=== PATIENT | male | born 1985 | race Hispanic/Latino ===

== ENCOUNTER 2017-08-14 16:06 | Emergency (ER) | payer OTHER ==
[~2017-08-14] VITALS: Ht 182.9 cm; Wt 82.6 kg
--- OUTSIDE RECORDS SUMMARY | 2017-08-14 16:08 | XMS REPORT | Clinical Summary ---
Author Author CORRIE [facility] Address Unknown Phone Unavailable Care Team Providers Care Erp Specialist Name Role Phone PCP Unavailable Allergies No Known Allergies Current Medications Prescription Sig. Disp. Refills Start End Date Status Date acetaminophen-codeine 10/07/19 Active (TYLENOL #3) 300-30 mg 16 per tablet cyclobenzaprine 10/07/19 Active (FLEXERIL) 10 MG tablet 16 diazepam (VALIUM) 5 MG 09/08/19 Active tablet 16 naproxen (NAPROSYN) 500 10/07/19 Active MG tablet 16 ondansetron (ZOFRAN) 4 MG 09/08/19 Active tablet 16 Active Problems No known active problems Social History Tobacco Use Types Packs/Day Years Used Date Never Smoker Smokeless Tobacco: Never Used Alcohol Use Drinks/Week oz/Week Comments No Sex Assigned at Date Recorded Not on file Last Filed Vital Signs Not on file Plan of Treatment Not on file Results Not on fileafter 08/13/2016
[2017-08-14] MEDS ORDERED: KETOROLAC TROMETHAMINE 30 MG/ML VIAL IV STA (16:17)
[2017-08-14] MEDS ORDERED: ONDANSETRON HCL INJ 2 MG/ML VIAL IV STA (16:24)
[2017-08-14] MEDS ORDERED: MORPHINE SULFATE INJ 10 MG/ML IV ONE ×2 (16:30→17:30)
[2017-08-14] MEDS ORDERED: SODIUM CHLORIDE 0.9% 1000ML 1,000 ML IV SCH ×2 (16:30→18:15)
[2017-08-14] MEDS ORDERED: MORPHINE SULFATE 2 MG/ML SYR IV STA (18:12)
[2017-08-14] MEDS ORDERED: METOCLOPRAMIDE HCL 10 MG/2ML VIAL IV ONE (18:15)
[2017-08-14] MEDS ORDERED: FENTANYL CITRATE/PF 100MCG/2 ML INJ IV ONE (19:30)
[2017-08-14] MEDS ORDERED: PROMETHAZINE 12.5MG/ NACL 0.9% 12.5 MG/50 ML BAG IV ONE (19:30)
== END 2017-08-14 19:20 | disposition home or self-care (01) ==
LOC: FSED 16:06
DX: R10.9 Unspecified abdominal pain (principal); N20.0 Calculus of kidney
CPT/HCPCS: 74176; 80053; 81003; 85025; 99284; J1885; J2270 ×2; J2405; J2550; J2765

== ENCOUNTER 2018-02-18 15:23 | Emergency (ER) | payer OTHER ==
[~2018-02-18] VITALS: Ht 182.9 cm; Wt 82.6 kg
--- OUTSIDE RECORDS SUMMARY | 2018-02-18 15:26 | XMS REPORT | Clinical Summary ---
Author Author CORRIE [facility] Address Unknown Phone Unavailable Care Team Providers Care Operations Support Representative Name Role Phone Sharpless PCP Allergies No Known Allergies Medications End Date Status Medication Sig Dispensed Refills Start Date Active acetaminophen-codeine 0 (TYLENOL #3) 300-30 mg 6 per tablet Active cyclobenzaprine 0 (FLEXERIL) 10 MG tablet 6 Active diazepam (VALIUM) 5 MG 0 tablet 6 Active naproxen (NAPROSYN) 500 0 MG tablet 6 Active ondansetron (ZOFRAN) 4 MG 0 tablet 6 Active Problems No known active problems Social History Date Tobacco Use Types Packs/Day Years Used Never Smoker Smokeless Tobacco: Never Used Alcohol Use Drinks/Week oz/Week Comments No Sex Assigned at Date Recorded Not on file Industry Job Start Date Occupation Not on file Not on file Not on file Travel End Travel History Travel Start No recent travel history available. Last Filed Vital Signs Not on file Plan of Treatment Not on file Results Not on fileafter 02/17/2017 Insurance Payer Benefit Subscriber ID Type Phone Address Plan / Group [facility] H[facility]/POS CARE POS SELECT CHOICE
[2018-02-18] MEDS ORDERED: KETOROLAC TROMETHAMINE 30 MG/ML VIAL IV STA (16:36)
[2018-02-18] MEDS ORDERED: SODIUM CHLORIDE 0.9% 1000ML 1,000 ML IV SCH (16:45)
--- NOTE | 2018-02-18 18:19 | Diagnostic Imaging Report ---
EXAM: CT Abdomen and Pelvis WITHOUT contrast INDICATION: Right lower quadrant pain ^[id number] ^1650 COMPARISON: None. TECHNIQUE: Abdomen and pelvis were scanned utilizing a multidetector helical scanner from the lung base to the pubic symphysis without administration of IV contrast. Absence of intravenous contrast decreases sensitivity for detection of focal lesions and vascular pathology. Coronal and sagittal reformations were obtained. Routine protocol was performed. IV CONTRAST: None ORAL CONTRAST: Water COMPLICATIONS: None RADIATION DOSE: Total DLP: 593.39 mGy*cm Estimated effective dose: (DLP x 0.015 x size factor) mSv CTDIvol has been reviewed. It is below the limits set by the Radiation Protocol Committee (RPC). FINDINGS: LINES and TUBES: None. LOWER THORAX: Unremarkable HEPATOBILIARY: Unenhanced liver is unremarkable. No biliary ductal dilation. GALLBLADDER: Contracted, limiting evaluation. No radio-opaque stones or sludge. No wall thickening. SPLEEN: No splenomegaly. PANCREAS: No focal masses or ductal dilatation. ADRENALS: No adrenal nodules KIDNEYS/URETERS: No hydronephrosis. Limited for evaluation of renal parenchyma without intravenous contrast. Multiple bilateral subcentimeter renal calculi, the largest in the left renal pelvis measuring 0.6 cm. 0.4 cm left ureterovesical junction calculus. GI TRACT: No abnormal distention, wall thickening, or evidence of bowel obstruction. Appendix is normal. PELVIC ORGANS/BLADDER: 6 mm bladder calculus, close to the right ureterovesical junction. Pelvic phleboliths. LYMPH NODES: No lymphadenopathy. VESSELS: Unremarkable. PERITONEUM / RETROPERITONEUM: No free air or fluid. BONES: Unremarkable. SOFT TISSUES: Small fat-containing umbilical hernia. IMPRESSION: 1. Multiple bilateral nonobstructive renal calculi. 2. 4 mm left ureterovesical junction calculus without left hydronephrosis. 3. 6 mm calculus within bladder, in close proximity to the right ureterovesical junction. Signed by: Dr. Rohan Brito MD on 02/18/2018 6:16 PM
== END 2018-02-18 18:57 | disposition home or self-care (01) ==
LOC: FSED 15:23
DX: R10.31 Right lower quadrant pain (principal); N20.1 Calculus of ureter; N28.9 Disorder of kidney and ureter, unspecified
CPT/HCPCS: 74176; 80053; 81003; 85025; 99284; J1885

== ENCOUNTER 2018-03-04 07:46 | Emergency (ER) | payer OTHER ==
[~2018-03-04] VITALS: Ht 180.3 cm; Wt 84.4 kg
--- OUTSIDE RECORDS SUMMARY | 2018-03-04 07:49 | XMS REPORT | Clinical Summary ---
Author Author CORRIE [facility] Address Unknown Phone Unavailable Care Team Providers Care Mixing Machine Tender Name Role Phone Sharpless PCP Allergies No [...] Not on file Results Not on fileafter 03/03/2017 Insurance Payer Benefit Subscriber ID Type Phone Address Plan / Group [facility]/POS CARE POS SELECT CHOICE
--- OUTSIDE RECORDS SUMMARY | 2018-03-04 07:50 | XMS REPORT ---
Author Author [facility] Address Unknown Phone Unavailable Care Team Providers Care Set Up And Lay Out Inspector Name Role Phone Luna AMAYA Unavailable Unavailable Problems This patient has no known problems. Allergies, Adverse Reactions, Alerts This patient has no known allergies or adverse reactions. Medications This patient has no known medications. Results Test Description Test Time Test Comments Text Results Atomic Results Result Comments CT ABD/PEL WO CONTRAST-HOPD 2018-02-18 18:09:00 [place] [address] Patient Name: ZINA FUNEZ MR #: [id number] : 1985 Age/Sex: 32/M Req #: [id number] [facility] Physician: Ordered by: NATALIE AMAYA MD Report #: [id number] Location: [facility] Room/Bed: Procedure: [id number] HOPD/CT ABD/PEL WO CONTRAST-HOPD Exam Date: 02/18/18 Exam Time: 1649 REPORT STATUS: Signed EXAM: CT Abdomen and Pelvis WITHOUT contrast INDICATION: Right lower quadrant pain [id number] COMPARISON: None. TECHNIQUE: Abdomen and pelvis were scanned utilizing a multidetector helical scanner from the lung base to the pubic symphysis without administration of IV contrast. Absence of intravenous contrast decreases sensitivity for detection of focal lesions and vascular pathology. Coronal and sagittal reformations were obtained. Routine protocol was performed. IV CONTRAST: None ORAL CONTRAST: Water COMPLICATIONS: None RADIATION DOSE: Total DLP: 593.39 mGy*cm Estimated effective dose: (DLP x 0.015 x size factor) mSv CTDIvol has been reviewed. It is below the limits set by the Radiation Protocol Committee (RPC). FINDINGS: LINES and TUBES: None. LOWER THORAX: Unremarkable HEPATOBILIARY: Unenhanced liver is unremarkable. No biliary ductal dilation. GALLBLADDER: Contracted, limiting evaluation. No radio-opaque stones or sludge. No wall thickening. SPLEEN: No splenomegaly. PANCREAS: No focal masses or ductal dilatation. ADRENALS: No adrenal nodules KIDNEYS/URETERS: No hydronephrosis. Limited for evaluation of renal parenchyma without intravenous contrast. Multiple bilateral subcentimeter renal calculi, the largest in the left renal pelvis measuring 0.6 cm. 0.4 cm left ureterovesical junction calculus. GI TRACT: No abnormal distention, wall thickening, or evidence of bowel obstruction. Appendix is normal. PELVIC ORGANS/BLADDER: 6 mm bladder calculus, close to the right ureterovesical junction. Pelvic phleboliths. LYMPH NODES: No lymphadenopathy. VESSELS: Unremarkable. PERITONEUM / RETROPERITONEUM: No free air or fluid. BONES: Unremarkable. SOFT TISSUES: Small fat-containing umbilical hernia. IMPRESSION: 1. Multiple bilateral nonobstructive renal calculi. 2. 4 mm left ureterovesical junction calculus without left hydronephrosis. 3. 6 mm calculus within bladder, in close proximity to the right ureterovesical junction. Signed by: Dr. Rohan Lugo MD on 02/18/2018 6:16 PM Dictated By: ROHAN LUGO MD 15 Transcribed By: KHADRA on 02/18/181815 COPY TO: NATALIE AMAYA MD
[2018-03-04] MEDS ORDERED: KETOROLAC TROMETHAMINE 30 MG/ML VIAL IV STA (07:59)
[2018-03-04] MEDS ORDERED: SODIUM CHLORIDE 0.9% 1000ML 1,000 ML IV SCH (08:00)
--- NOTE | 2018-03-04 09:03 | Diagnostic Imaging Report ---
EXAM: CT Abdomen and Pelvis WITHOUT contrast INDICATION: Left flank pain. History of renal stones. COMPARISON: CT abdomen and pelvis 02/18/2018. TECHNIQUE: Abdomen and pelvis were scanned utilizing a multidetector helical scanner from the lung base to the pubic symphysis without administration of IV contrast. Absence of intravenous contrast decreases sensitivity for detection of focal lesions and vascular pathology. Coronal and sagittal reformations were obtained. Stone protocol is performed. IV CONTRAST: None ORAL CONTRAST: Water COMPLICATIONS: None RADIATION DOSE: Total DLP: 712.38 mGy*cm Estimated effective dose: (DLP x 0.015 x size factor) mSv CTDIvol has been reviewed. It is below the limits set by the Radiation Protocol Committee (RPC). FINDINGS: LINES and TUBES: None. LOWER THORAX: Unremarkable HEPATOBILIARY: No focal hepatic lesions. No biliary ductal dilation. GALLBLADDER: No radio-opaque stones or sludge. No wall thickening. SPLEEN: No splenomegaly. PANCREAS: No focal masses or ductal dilatation. ADRENALS: No adrenal nodules KIDNEYS/URETERS: New mild left hydronephrosis and hydroureter. No cystic or solid mass lesions. Multiple bilateral subcentimeter nonobstructing bilateral renal stones. Previous right bladder stone and a left UVJ stone are no longer present. New 0.5 cm stone in the mid left ureter (series 3, image 83). A new 0.5 cm distal left ureteral stone, roughly 2 cm from the left UVJ (series 3, image 137). GI TRACT: No abnormal distention, wall thickening, or evidence of bowel obstruction. Appendix is normal. PELVIC ORGANS/BLADDER: Previous right bladder calculi near the right UVJ is no longer present. Pelvic phleboliths.. LYMPH NODES: No lymphadenopathy. VESSELS: Unremarkable. PERITONEUM / RETROPERITONEUM: No free air or fluid. BONES: Unremarkable. SOFT TISSUES: Small fat-containing umbilical hernia. IMPRESSION: 1. New 0.5 cm mid left ureteral stone. New 0.5 cm distal left ureteral stone near the UVJ. Mild left hydronephrosis and hydroureter. 2. Bilateral renal stones. 3. Previous right bladder calculus and left UVJ stone are no longer present. Signed by: Dr. Jamil Scruggs M.D. on 03/04/2018 9:00 AM
[2018-03-04 09:52] VITALS: BP 127/88
== END 2018-03-04 10:02 | disposition home or self-care (01) ==
LOC: FSED 07:46
DX: R10.32 Left lower quadrant pain (principal); M54.5 Low back pain; N20.0 Calculus of kidney
CPT/HCPCS: 74176; 80053; 81003; 85025; 99284; J1885; J7030

== ENCOUNTER 2019-03-05 15:09 | Emergency (ER) | payer OTHER ==
[~2019-03-05] VITALS: Ht 180.3 cm; Wt 84.4 kg
[2019-03-05] MEDS ORDERED: KETOROLAC TROMETHAMINE 30 MG/ML VIAL IV STA (15:39)
[2019-03-05] MEDS ORDERED: KETOROLAC TROMETHAMINE 30 MG/ML VIAL ONE (15:59)
--- NOTE | 2019-03-05 16:09 | NUR ---
[facility] CALLED FOR TRANSPORT 30MIN ETA
== END 2019-03-05 16:30 | disposition home or self-care (01) ==
LOC: FSED 15:09
DX: R10.9 Unspecified abdominal pain (principal); R31.29 Other microscopic hematuria; M54.5 Low back pain
CPT/HCPCS: 80053; 81003; 85025; 99283; J1885

== ENCOUNTER 2020-09-02 09:05 | Emergency (ER) | payer OTHER ==
[~2020-09-02] VITALS: Ht 182.9 cm; Wt 84.8 kg
[2020-09-02] MEDS ORDERED: CEFDINIR300 MG PO (09:28)
[2020-09-02] MEDS ORDERED: CORTISPORIN-TC10 M1 LEFT EAR (09:28)
== END 2020-09-02 09:38 | disposition home or self-care (01) ==
LOC: FSED 09:26
DX: H66.91 Otitis media, unspecified, right ear (principal); Z87.442 Personal history of urinary calculi
CPT/HCPCS: 99282